=== PATIENT | male | born 2000 | race Two or more races ===

== ENCOUNTER 2019-10-27 19:24 | Emergency (ER) | payer OTHER ==
[~2019-10-27] VITALS: Ht 175.3 cm; Wt 110.7 kg
--- NOTE | 2019-10-27 20:19 | REP ---
Clinical: Cough and flu-like symptoms . Comparison: None . Technique: PA and lateral. Findings: The mediastinum and cardiac silhouette are normal. The lung harg[place] are clear and without acute consolidation, effusion, or pneumothorax. The skeletal structures are intact and normal. Impression: 1. No acute cardiopulmonary process. Electronically Signed by Vick Rothman MD 10/27/2019 08:11 P
[2019-10-27 21:25] VITALS: BP 112/61
[2019-10-27] MEDS ORDERED: PENI500T PO (21:54)
[2019-10-27] MEDS ORDERED: PENICILLIN V POTASSIUM 500 MG TAB PO ONE (22:00)
== END 2019-10-27 22:07 | disposition home or self-care (01) ==
LOC: M ED 19:24
DX: J02.0 Streptococcal pharyngitis (principal); B34.8 Other viral infections of unspecified site; F17.210 Nicotine dependence, cigarettes, uncomplicated

== ENCOUNTER → 2020-08-02 | Outpatient (REF) | payer OTHER ==
[~2020-08-02] MED LIST: PENI500T PO
== END ==
LOC: M LAB REF 19:03
PROVIDERS: ATTEND Physician Assistant Medical
DX: Z11.59 Encounter for screening for other viral diseases (principal)